=== PATIENT | male | born 1970 | race Caucasian/White ===

== ENCOUNTER → 2021-07-27 | Day surgery (SDC) | payer OTHER ==
[~2021-07-27] VITALS: Ht 188 cm; Wt 142.9 kg
[~2021-07-27] MED LIST: ALLOPURINOL 10100 MG PO; METOPROLOL SUCC25 MG PO; PRIMATENE ASTH1 EACH PO
== END | disposition home or self-care (01) ==
LOC: FAS 09:21
DX: Z12.11 Encounter for screening for malignant neoplasm of colon (principal); D12.3 Benign neoplasm of transverse colon; K57.30 Diverticulosis of large intestine without perforation or abscess without bleeding; K21.9 Gastro-esophageal reflux disease without esophagitis; J30.9 Allergic rhinitis, unspecified; F41.9 Anxiety disorder, unspecified; M54.50 Low back pain, unspecified; G89.29 Other chronic pain; M10.9 Gout, unspecified; I10 Essential (primary) hypertension; I87.2 Venous insufficiency (chronic) (peripheral); I87.8 Other specified disorders of veins; G47.00 Insomnia, unspecified; K58.9 Irritable bowel syndrome, unspecified; E66.01 Morbid (severe) obesity due to excess calories; F17.200 Nicotine dependence, unspecified, uncomplicated; Z68.41 Body mass index [BMI] 40.0-44.9, adult; Z79.4 Long term (current) use of insulin; Z79.899 Other long term (current) drug therapy; Z88.0 Allergy status to penicillin; Z88.5 Allergy status to narcotic agent; Z91.030 Bee allergy status; Z90.5 Acquired absence of kidney
CPT/HCPCS: J2250; J2704; J7120